=== PATIENT | female | born 1980 | race African-American/Black ===

== ENCOUNTER 2018-07-30 02:57 | Emergency (ER) | payer OTHER ==
[2018-07-30 03:46] VITALS: TEMP 97.9; BMI 47.2
--- NOTE | 2018-07-30 03:50 | PDOC ---
History of Present Illness - General Chief Complaint: Edema Stated Complaint: SWELLING,CHILLS Time Seen by Provider: 07/30/18 03:43 History Source: Patient - History of Present Illness Initial Comments: 07/30/18 04:45 38 year old morbidly obese female with c/o b/l lower extremity edema x 1 week today noted to have erythema to both legs. denies SOB, chest pain , prolonged sitting, recent travel, fever. PMHX: hypertension Past History - Past Medical History Allergies/Adverse Reactions: Allergies Allergy/AdvReac Type Severity Reaction Status Date / Time No Known Allergies Allergy Verified 07/30/18 03:45 Home Medications: Ambulatory Orders Amlodipine Besylate [Norvasc -] 5 mg PO BID 07/30/18 Hydrochlorothiazide [Hctz -] 25 mg PO DAILY 07/30/18 Ramipril 10 mg PO BID 07/30/18 - Suicide/Smoking/Psychosocial Hx Smoking History: Never smoked Have you smoked in the past 12 months: No Information on smoking cessation initiated: No Hx Alcohol Use: No Drug/Substance Use Hx: No *Physical Exam - Vital Signs Last Vital Signs Temp Pulse Resp BP Pulse Ox 97.9 F 91 H 15 153/96 100 07/30/18 02:57 07/30/18 02:57 07/30/18 02:57 07/30/18 02:57 07/30/18 02:57 - Physical Exam General Appearance: Yes: Appropriately Dressed Respiratory/Chest: positive: Lungs Clear, Normal Breath Sounds Cardiovascular: positive: Regular Rhythm, Regular Rate Gastrointestinal/Abdominal: positive: Normal Bowel Sounds, Soft Musculoskeletal: positive: Normal Inspection Extremity: positive: Normal Capillary Refill, Normal Inspection, Normal Range of Motion, Pedal Edema (b/l non pitting pedal edema with erythema. + b/l pedal pulse). negative: Calf Tenderness Integumentary: positive: Normal Color, Dry, Warm Neurologic: positive: Fully Oriented, Alert, Normal Mood/Affect Moderate Sedation - Procedure Monitoring Vital Signs: Procedure Monitoring Vital Signs Temperature 97.9 F 07/30/18 02:57 Pulse Rate 91 H 07/30/18 02:57 Respiratory Rate 15 07/30/18 02:57 Blood Pressure 153/96 07/30/18 02:57 O2 Sat by Pulse Oximetry (%) 100 07/30/18 02:57 ED Treatment Course - LABORATORY CBC & Chemistry Diagram: 07/30/18 04:32 07/30/18 04:32 Medical Decision Making - Medical Decision Making 07/30/18 04:59 A: dependent b/l pedal edema P: cbc cmp d-dimer bnp patient pending US r/o dvt/ patient signed out to Madeleine GEORGES *DC/Admit/Observation/Transfer Diagnosis at time of Disposition: Pedal edema - Discharge Dispostion Disposition: HOME Condition at time of disposition: Fair - Referrals - Patient Instructions Printed Discharge Instructions: DI for Peripheral Edema -- Bilateral Additional Instructions: The reason for the swelling in your legs is unclear at this time. Possibilities include faulty veins or adverse reaction of your Norvasc. Please follow-up with your PMD today for further evaluation and management. Your labs show no evidence of infection and your ultrasound was negative for blood clot - Post Discharge Activity Forms/Work/School Notes: Back to Work
--- NOTE | 2018-07-30 04:00 | PDOC ---
*Physical Exam - Vital Signs Last Vital Signs Temp Pulse Resp BP Pulse Ox 97.9 F 91 H 15 153/96 100 07/30/18 02:57 07/30/18 02:57 07/30/18 02:57 07/30/18 02:57 07/30/18 02:57 ED Treatment Course - LABORATORY CBC & Chemistry Diagram: 07/30/18 04:32 07/30/18 04:32 Medical Decision Making - Medical Decision Making 07/30/18 04:00 Patient seen by the advanced practice provider under my direct supervision. Ancillary testing reviewed as necessary. I agree with plan as outlined by the advanced practice provider. *DC/Admit/Observation/Transfer Diagnosis at time of Disposition: Dependent edema - Discharge Dispostion Condition at time of disposition: Fair - Referrals - Patient Instructions - Post Discharge Activity
[2018-07-30 04:40] LABS: BASO % 0.5 % (0-2.0); EOS % 1.4 % (0-4.5); HEMOGLOBIN 12.2 GM/dL (10.7-15.3); LYMPH % 27.8 % (8-40); MCH 30.5 pg (25.7-33.7); MCHC 33.8 g/dl (32.0-36.0); MEAN CELL VOLUME 90.2 fl (80-96); MEAN PLT VOLUME 8.2 fl (7.5-11.1); MONO % 7.5 % (3.8-10.2); NEUT % 62.8 % (42.8-82.8); PLATELET COUNT 272 K/MM3 (134-434); RDW 16.4 % (11.6-15.6)
[2018-07-30 05:10] LABS: ALBUMIN 3.6 g/dl (3.4-5.0); ALK PHOS 72 U/L (45-117); ANION GAP 8 MMOL/L (8-16); BILIRUBIN,TOTAL 0.5 mg/dL (0.2-1); BLOOD UREA NITROGEN 16 mg/dL (7-18); CALCIUM 9.1 mg/dL (8.5-10.1); CHLORIDE 98 mmol/L (98-107); CO2 28 mmol/L (21-32); CREATININE 0.6 mg/dL (0.55-1.3); GLUCOSE,RANDOM 93 mg/dL (74-106); POTASSIUM 3.7 mmol/L (3.5-5.1); SGOT/AST 28 U/L (15-37); SGPT/ALT 24 U/L (13-61); SODIUM 134 mmol/L (136-145); TOT PROT 7.9 g/dl (6.4-8.2)
--- NOTE | 2018-07-30 08:16 | PDOC ---
*Physical Exam - Vital Signs Last Vital Signs Temp Pulse Resp BP Pulse Ox 97.9 F 91 H 15 153/96 100 07/30/18 02:57 07/30/18 02:57 07/30/18 02:57 07/30/18 02:57 07/30/18 02:57 - Physical Exam General Appearance: Yes: Appropriately Dressed. No: Apparent Distress HEENT: positive: Normal Voice Neck: positive: Supple Respiratory/Chest: positive: Lungs Clear, Normal Breath Sounds. negative: Respiratory Distress Cardiovascular: positive: Regular Rate, S1, S2 Extremity: positive: Swelling, Other (non-pitting edema to b/l LE up to campbell w/ several scattered areas of non-blanchable erythema b/l, no sig ttp, no obvious increased warmth, no blisters or crepitus, unable to palpate pulses 2/2 swelling ). negative: Tender Integumentary: positive: Dry, Warm Neurologic: positive: Fully Oriented, Alert, Normal Mood/Affect ED Treatment Course - LABORATORY CBC & Chemistry Diagram: 07/30/18 04:32 07/30/18 04:32 - ADDITIONAL ORDERS Additional order review: Laboratory Results 07/30/18 07/30/18 07/30/18 07:28 04:32 04:32 D-Dimer Sodium Potassium Chloride Carbon Dioxide Anion Gap BUN Creatinine Creat Clearance w eGFR Random Glucose Calcium Total Bilirubin AST ALT Alkaline Phosphatase B-Natriuretic Peptide 19.4 Total Protein Albumin Beta HCG, Quant < 1.0 Serum , Qual Cancelled 07/30/18 07/30/18 04:32 04:32 D-Dimer 552 H Sodium 134 L Potassium 3.7 Chloride 98 Carbon Dioxide 28 Anion Gap 8 BUN 16 Creatinine 0.6 Creat Clearance w eGFR 113.12 Random Glucose 93 Calcium 9.1 Total Bilirubin 0.5 AST 28 ALT 24 Alkaline Phosphatase 72 B-Natriuretic Peptide Total Protein 7.9 Albumin 3.6 Beta HCG, Quant Serum , Qual 07/30/18 04:32 RBC 4.00 MCV 90.2 MCHC 33.8 RDW 16.4 H MPV 8.2 Neutrophils % 62.8 Lymphocytes % 27.8 Monocytes % 7.5 Eosinophils % 1.4 Basophils % 0.5 Medical Decision Making - Medical Decision Making 07/30/18 08:15 Sign out at 7 AM Patient is a 38-year-old morbidly obese female with history of hypertension on Norvasc, hydrochlorothiazide and verapamil here with bilateral lower extremity swelling that started 1 week ago that recently became mildly uncomfortable. Per patient also noticed patchy areas of erythema to both legs. This a.m. No fever or chills. Denies chest pain, shortness of breath or palpitations. No recent travel or other risk factors for DVT, PE. Team. Labs remarkable for elevated d-dimer and bilateral ultrasound now pending 07/30/18 08:19 On reassessment now, patient appears well, in no apparent distress with bilateral non-pitting edema of feet extending into campbell, with some scattered areas of non-blanching erythema bilaterally. There is no obvious increased warmth and no significant tenderness. Unable to palpate pulses 2/2 to swelling. At this time, strongly doubt infection or DVT given bilateral involvement. Possible venous stasis. Of note, patient on norvasc, calcium channel blockers known to cause peripheral edema as adverse reaction. Ultrasound still pending. Anticipate discharge with PMD follow-up 07/30/18 09:43 DVT study neg. Pt stable for dc w/ PMD f/u today *DC/Admit/Observation/Transfer Diagnosis at time of Disposition: Pedal edema - Discharge Dispostion Disposition: HOME Condition at time of disposition: Fair - Referrals - Patient Instructions Printed Discharge Instructions: DI for Peripheral Edema -- Bilateral Additional Instructions: The reason for the swelling in your legs is unclear at this time. Possibilities include faulty veins or adverse reaction of your Norvasc. Please follow-up with your PMD today for further evaluation and management. Your labs show no evidence of infection and your ultrasound was negative for blood clot - Post Discharge Activity
[2018-07-30 10:14] VITALS: BP 145/86; PULSE 75
== END 2018-07-30 09:54 | disposition home or self-care (01) ==
LOC: JER 02:57
DX: R60.0 Localized edema (principal); E66.01 Morbid (severe) obesity due to excess calories; Z68.42 Body mass index [BMI] 45.0-49.9, adult
CPT/HCPCS: 36415; 80053; 83880; 84702; 85025; 85379; 93970-TC; 99283-25